=== PATIENT | male | born 1985 | race Caucasian/White ===

== ENCOUNTER 2020-01-26 09:33 | Emergency (ER) | payer OTHER ==
[~2020-01-26] VITALS: Ht 182.9 cm; Wt 108.9 kg
[~2020-01-26 09:33] MED LIST: ACETAMINOPHEN-1 EAC1 PO; LIDOCAINE VISC100 M1 SWISH&SPIT; PENICILLIN V P500 MG PO
[2020-01-26] MEDS ORDERED: NORCO 5-325 TA1 EAC1 PO (11:24)
[2020-01-26 11:53] VITALS: BP 141/88
== END 2020-01-26 11:57 | disposition home or self-care (01) ==
LOC: M.ERS 09:33
DX: S63.681A Other sprain of right thumb, initial encounter (principal); W23.0XXA Caught, crushed, jammed, or pinched between moving objects, initial encounter; Y93.89 Activity, other specified; Y92.89 Other specified places as the place of occurrence of the external cause; Y99.0 Civilian activity done for income or pay